=== PATIENT | male | born 2000 | race Caucasian/White ===

== ENCOUNTER 2024-06-09 20:19 | Emergency (ER) | payer BC, SELFPAY ==
[2024-06-09 20:27] VITALS: BP 149/99; PULSE 63; RESP 16; TEMP 36.7; O2SAT 99; BMI 24.4
--- NOTE | 2024-06-09 20:42 | ED.GENADULT ---
HPI - General Adult General Chief complaint: Extremity Pain/Injury, Upper Stated complaint: Right hand injury request xrays Time Seen by Provider: 06/09/24 20:23 Source: patient Mode of arrival: ambulatory Limitations: no limitations History of Present Illness HPI narrative: 23-year-old male coming in today complaining of right hand pain. Patient states that approximately 2 weeks ago he dropped a 40-50 lb drive shaft on his hand when he was under a car working back. He has had pain on the medial half of his hand ever since. He is able to do his activities of daily living and he has continued to work. He thought it would be healed by now so he comes in for evaluation. He is also concerned because approximately 1 year ago he states that he suffered from a boxer's fracture for which he did not wear his splint appropriately as he was instructed to do. He is wondering if that fracture healed ?appropriately?. When I ask him if he is having hand pain prior to 2 weeks ago when he dropped the drive shaft on his hand he replies with ?maybe? ? Related Data Home Medications ?Medication ?Instructions ?Recorded ?Confirmed No Known Home Medications 06/09/24 06/09/24 Allergies Allergy/AdvReac Type Severity Reaction Status Date / Time No Known Drug Allergies Allergy Verified 06/09/24 20:32 Review of Systems Status of ROS: Reports: 6 or more systems reviewed and unremarkable except as noted in History and below [facility] Social History Smoking Status: Never smoker How often do you have a drink containing alcohol: never AUDIT-C Alcohol total score: 0 Non-prescribed substance use: denies use Exam Narrative: Exam Narrative: Well-nourished well-developed patient in no acute distress. Alert and oriented. Answers questions appropriately. Mood and affect are appropriate. Thoughts are goal oriented and rational. No tangential or magical thinking noted. Patient speaks in full sentences without needing to catch his breath. HEENT: Normocephalic atraumatic. Extraocular muscles are intact. Conjunctivae are moist without any icterus noted. Moist mucous membranes. Extremities: Right hand has normal appearance. He has no tenderness to palpation anywhere on the hand or fingers. Wrist is normal with full range of motion. He has full range of motion of all the fingers with flexion extension without pain or limitations. There is no swelling noted, no ecchymosis, no broken skin. The hand examination is entirely normal. Const: Vital Signs, click to edit/add: Vital Signs - 24 hr 06/09/24 20:27 Temperature 98.1 F Pulse Rate [Pulse Oximeter] 63 Respiratory Rate 16 Blood Pressure [Ri ght Upper Arm] 149/99 H Pulse Oximetry 99 Oxygen Delivery Me thod Room Air Course Course ED Course: Discussed with the patient that a contusion can cause pain for several weeks. At this point I do not think, given his physical examination, that anything is broken. However, I do offer to do an x-ray. Patient states that he does not want to do one if I do not think that we will find anything. We discussed splinting his hand. Patient states that he does not wish to do this either. Vital Signs Vital signs: Initial Vital Signs Temperature 98.1 F 06/09/24 20:27 Temperature Source Temporal Artery Scan 06/09/24 20:27 Pulse Rate 63 06/09/24 20:27 Respiratory Rate 16 06/09/24 20:27 Blood Pressure 149/99 H 06/09/24 20:27 Blood Pressure Mean 115 H 06/09/24 20:27 Blood Pressure Position Sitting 06/09/24 20:27 Pulse Oximetry 99 06/09/24 20:27 Oxygen Delivery Method Room Air 06/09/24 20:27 Vital Signs Temperature 98.1 F 06/09/24 20:27 Pulse Rate 63 06/09/24 20:27 Respiratory Rate 16 06/09/24 20:27 Blood Pressure 149/99 H 06/09/24 20:27 Pulse Oximetry 99 06/09/24 20:27 Oxygen Delivery Method Room Air 06/09/24 20:27 Temperature 98.1 F 06/09/24 20:27 Pulse Rate 63 06/09/24 20:27 Respiratory Rate 16 06/09/24 20:27 Blood Pressure 149/99 H 06/09/24 20:27 Pulse Oximetry 99 06/09/24 20:27 Oxygen Delivery Method Room Air 06/09/24 20:27 Medical Decision Making MDM Narrative Medical decision making narrative: 23-year-old male, contusion to the right hand. Discussed symptomatic treatment. Discharge Plan Discharge Clinical Impression: Contusion of hand Patient Disposition: Home, Self-Care Condition: Stable Additional Instructions: Recommend ibuprofen 400-600 mg with meals as needed for discomfort. Recommend splinting the hand as needed for comfort. If you are not improving over the next few weeks, follow-up with your primary care provider. Prescriptions: No Action No Known Home Medications Stand Alone Forms: [facility] Info Instructions
== END 2024-06-09 21:07 | disposition home or self-care (01) ==
LOC: ED 20:52
PROVIDERS: Emergency Provider Family Medicine
DX: S60.221A Contusion of right hand, initial encounter (principal); W20.8XXA Other cause of strike by thrown, projected or falling object, initial encounter
CPT/HCPCS: 99282; 99283